=== PATIENT | female | born 1965 | race Caucasian/White ===

== ENCOUNTER → 2021-08-20 | Outpatient (CLI) | payer MEDICARE ==
[~2021-08-20] MED LIST: ADULT LOW DOSE81 MG PO; BUSPIRONE HCL7.5 MG PO; CYMBALTA60 MG PO; GABAPENTIN300 MG PO; LOPRESSOR 25 MG25 MG PO; METHOCARBAMOL500 MG PO; NORVASC5 MG PO; PRIMIDONE50 MG PO; RANEXA500 MG PO; TRAMADOL HCL50 MG PO; ZYRTEC10 MG PO
[2021-08-20 11:30] LABS: HEMOGLOBIN 13.9 gm/dl (12.3-15.3); RED BLOOD COUNT 4.27 M/UL (4.00-5.10)
[2021-08-20 11:48] LABS: BUN/CREATININE RATIO 12 (0-10)
== END ==
LOC: OPSV2 08-15 11:00
PROVIDERS: Orthopaedic Surgery
DX: Z01.812 Encounter for preprocedural laboratory examination (principal); M13.832 Other specified arthritis, left wrist
CPT/HCPCS: 36415; 80048; 85025

== ENCOUNTER → 2021-08-23 | Day surgery (SDC) | payer MEDICARE ==
[~2021-08-23] MED LIST changes: +CALCIUM 600 +1 EA10 PO; +CELEXA40 MG PO; +GLYCOPYRROLATE2 MG PO; +HYDROCODON-ACE1 EAC2 PO; +MYRBETRIQ50 MG PO; +OMEPRAZOLE40 MG PO
== END | disposition home or self-care (01) ==
LOC: OR 05:13
DX: M18.12 Unilateral primary osteoarthritis of first carpometacarpal joint, left hand (principal); I10 Essential (primary) hypertension; K21.9 Gastro-esophageal reflux disease without esophagitis; M79.7 Fibromyalgia; F41.9 Anxiety disorder, unspecified; F32.A Depression, unspecified; Z79.82 Long term (current) use of aspirin; Z79.891 Long term (current) use of opiate analgesic; Z79.899 Other long term (current) drug therapy; Z90.710 Acquired absence of both cervix and uterus; Z88.8 Allergy status to other drugs, medicaments and biological substances
CPT/HCPCS: 73120; 76000; C1713; J0171; J0690; J1100; J2001; J2250; J2405; J2704; J2795; J3010; J7120